=== PATIENT | male | born 1985 | race Caucasian/White ===

== ENCOUNTER 2018-09-04 13:35 | Emergency (ER) | payer OTHER ==
[2018-09-04 13:42] VITALS: BP 151/87
[2018-09-04] MEDS ORDERED: DIPH/PERTUSS(ACELL)/TETANUS VAC/PF 0.5 ML SYR (>=10YO) IM ONE (14:06)
[2018-09-04] MEDS ORDERED: CEPHALEXIN 500 MG CAPSULE PO ONE (14:06)
[2018-09-04] MEDS ORDERED: SULFAMETHOXAZOLE/TRIMETHOPRIM 800-160 MG TABLET PO ONE (14:06)
[2018-09-04] MEDS ORDERED: IBUPROFEN 800 MG TABLET PO ONE (14:09)
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
== END 2018-09-04 14:42 | disposition home or self-care (01) ==
LOC: ER 13:35
DX: S61.210A Laceration without foreign body of right index finger without damage to nail, initial encounter (principal); T23.222D Burn of second degree of single left finger (nail) except thumb, subsequent encounter; I89.1 Lymphangitis; X58.XXXA Exposure to other specified factors, initial encounter; Z23 Encounter for immunization; F17.200 Nicotine dependence, unspecified, uncomplicated
CPT/HCPCS: 90471; 90715; 99282